=== PATIENT | male | born 1990 | race Caucasian/White ===

== ENCOUNTER 2024-04-27 22:56 | Emergency (ER) | payer BC, OTHER ==
[2024-04-27 23:05] VITALS: BP 128/74; PULSE 76; RESP 18; TEMP 97.9; BMI 22.8
[2024-04-27] MEDS ORDERED: ACETAMINOPHEN INJECTION 100 ML ONE (23:55)
[2024-04-28] MEDS: ACETAMINOPHEN 1000 MG/100 ML BAG IVPB ONE (00:11)
[2024-04-28 00:47] LABS: EOS % 0.9 % (0-4.5); HEMATOCRIT 44.7 % (35.4-49); HEMOGLOBIN 14.7 GM/dL (11.7-16.9); LYMPH % 13.5 % (8-40); MCHC 32.9 g/dl (32.0-35.9); MEAN PLT VOLUME 8.1 fl (7.5-11.1); MONO % 8.8 % (3.8-10.2); NEUT % 75.8 % (42.8-82.8); PLATELET COUNT 254 10^3/uL (134-434); RBC 5.88 M/mm3 (4.00-5.60); RDW 13.9 % (11.9-15.9); WHITE BLOOD COUNT 10.7 K/mm3 (4.0-10.0)
[2024-04-28 01:20] LABS: URINE APPEARANCE CLEAR; URINE BILIRUBIN NEGATIVE (NEGATIVE); URINE COLOR YELLOW; URINE GLUCOSE (UA) NEGATIVE (NEGATIVE); URINE KETONE TRACE (NEGATIVE); URINE LEUK ESTERASE NEGATIVE (NEGATIVE); URINE NITRITE NEGATIVE (NEGATIVE); URINE PROTEIN NEGATIVE (NEGATIVE); URINE UROBILINOGEN 0.2 mg/dL (0.2-1.0)
[2024-04-28 01:34] LABS: POTASSIUM 3.8 mmol/L (3.5-5.1)
[2024-04-28 01:35] LABS: CALCIUM 9.4 mg/dL (8.5-10.1)
[2024-04-28 01:36] LABS: ALBUMIN 4.4 g/dl (3.4-5.0)
[2024-04-28 01:39] LABS: CREATININE 1.3 mg/dL (0.55-1.3)
[2024-04-28 01:41] LABS: BILIRUBIN,TOTAL 0.8 mg/dL (0.2-1)
[2024-04-28] MEDS: CIPROFLOXACIN 500 MG TABLET (RESTRICTED TO ID) PO ONE (01:58)
== END 2024-04-28 02:02 | disposition home or self-care (01) ==
LOC: JER 22:56
PROC: 3E033NZ Introduction of Analgesics, Hypnotics, Sedatives into Peripheral Vein, Percutaneous Approach (ICD-10-PCS; principal; 2024-04-27)
DX: N39.0 Urinary tract infection, site not specified (principal); R10.31 Right lower quadrant pain; D72.829 Elevated white blood cell count, unspecified
CPT/HCPCS: 36415; 80053; 81003; 85025; 85651; 86140; 87086; 99284-25; J0131